=== PATIENT | male | born 1960 | race African-American/Black ===

== ENCOUNTER 2024-12-27 08:50 | Day surgery (SDC) | payer MEDICARE ==
[~2024-12-27] VITALS: Ht 167.6 cm; Wt 85.7 kg
[2024-12-27] VITALS (11 sets, daily range): BP systolic 106–152; BP diastolic 66–85; PULSE 50–60; RESP 14–16; TEMP 97.3–97.8
[~2024-12-27 08:50] MED LIST: ALLO100T PO; PANT40TA54 PO; ROSU10TA72 PO; TAMS-55 PO; UBID200C37 PO; VITA400T9 PO
[2024-12-27] MEDS: 0.9%NACL 1000ML 1,000 ML IV ONE (10:18)
== END 2024-12-27 12:42 | disposition home or self-care (01) ==
LOC: ENDO 08:50 → DAH 08:50 → ENDO 12:42
PROVIDERS: ATTEND Internal Medicine Gastroenterology
DX: R10.13 Epigastric pain (principal); R10.10 Upper abdominal pain, unspecified; R11.0 Nausea; M19.90 Unspecified osteoarthritis, unspecified site; N40.0 Benign prostatic hyperplasia without lower urinary tract symptoms; R55 Syncope and collapse; I10 Essential (primary) hypertension; E78.5 Hyperlipidemia, unspecified; Z85.46 Personal history of malignant neoplasm of prostate; K76.0 Fatty (change of) liver, not elsewhere classified; Z86.0100 Personal history of colon polyps, unspecified; Z88.1 Allergy status to other antibiotic agents; Z79.899 Other long term (current) drug therapy
CPT/HCPCS: 82948; 43239; J7030; J2704; A4620; A4215; A4223; A7002; A4222; A4221; A4663; A4606; J3490